=== PATIENT | male | born 1945 | race Caucasian/White ===

== ENCOUNTER 2022-02-15 23:33 | Emergency (ER) | payer MEDICARE, OTHER ==
[2022-02-15 23:48] VITALS: BP 154/61; PULSE 61
[2022-02-16] MEDS ORDERED: Sodium Chloride 0.9% 1,000 ML IV SCH (00:30)
[2022-02-16 01:10] LABS: ESTIMATED GFR 48 mL/min (>60)
[2022-02-16] MEDS ORDERED: Iopamidol 755 Mg/ML 100 ML Bottle IVPUSH ONE (03:41)
[2022-02-16] MEDS ORDERED: Sodium Chloride 0.9% 100 ML IV SCH (03:45)
== END 2022-02-16 05:45 | disposition home or self-care (01) ==
LOC: JD.ED 23:33
DX: K21.9 Gastro-esophageal reflux disease without esophagitis (principal); R73.9 Hyperglycemia, unspecified; R09.02 Hypoxemia; I10 Essential (primary) hypertension; Z87.891 Personal history of nicotine dependence; Z88.1 Allergy status to other antibiotic agents
CPT/HCPCS: 36415; 71046; 71275; 74177; 80053; 83690; 83735; 83880; 85007; 85027; 85379; 94762; 96360; 96361; 99284; J7030; Q9967

== ENCOUNTER 2023-10-02 22:51 | Emergency (ER) | payer OTHER ==
[2023-10-03 00:09] VITALS: BP 149/70; PULSE 63
[2023-10-03] MEDS: Lidocaine 2% 11 ML Jelly Filled Syringe MUCMEM ONE (01:13)
== END 2023-10-03 02:53 | disposition home or self-care (01) ==
LOC: JD.ED 22:51
DX: K59.01 Slow transit constipation (principal); I10 Essential (primary) hypertension; E78.00 Pure hypercholesterolemia, unspecified; K21.9 Gastro-esophageal reflux disease without esophagitis; Z88.1 Allergy status to other antibiotic agents; Z79.899 Other long term (current) drug therapy
CPT/HCPCS: 74018; 99284; A9270; 99283